=== PATIENT | female | born 1955 | race Caucasian/White ===

== ENCOUNTER → 2017-08-22 | Outpatient (CLI) | payer OTHER ==
--- NOTE | 2017-08-22 13:18 | XR ---
Lumbar spine HISTORY: Arthritis, pain 5 views of the lumbosacral spine Bone mineralization is reduced. Lumbar vertebral bodies show preserved height and alignment. There is no evident spondylolysis. Multilevel loss of disc height is present. There is multilevel spondylosis . Sclerosis present in the posterior elements of the lower lumbar spine. IMPRESSION: Degenerative disc disease and facet arthropathy, osteopenia
== END | disposition home or self-care (01) ==
LOC: RADXRMAIN 10:47
PROVIDERS: ATTEND Family Medicine
DX: M51.36 Other intervertebral disc degeneration, lumbar region (principal); M46.96 Unspecified inflammatory spondylopathy, lumbar region; M85.88 Other specified disorders of bone density and structure, other site
CPT/HCPCS: 72110